=== PATIENT | female | born 1995 | race Caucasian/White ===

== ENCOUNTER 2020-04-03 22:54 | Emergency (ER) | payer OTHER ==
[2020-04-03 23:55] LABS: BASOPHIL 0.2 % (0-2); EOSINOPHIL 0 % (0-5); HCT 39.9 % (37.0-47.0); HGB 12.7 g/dl (12.5-16.0); MCHC 31.8 g/dL (32.0-36.0); MCV 81.8 fL (78.0-100.0); MONOCYTE 7.2 % (0-12); MPV 10.3 fL (6.0-9.5); NEUTROPHIL 65.4 % (41-80); NRBC 0; PLT 397 K/uL (150-400); RBC 4.88 M/uL (4.20-5.40); WBC 9.8 K/uL (4.0-10.5)
[2020-04-04 00:16] LABS: ALBUMIN 3.6 g/dL (3.4-5.0); BILIRUBIN - TOTAL 0.3 mg/dL (0.2-1.0); BUN/CREAT RATIO (CALC) 12.9 RATIO; CREATININE 0.85 mg/dL (0.51-0.95); GLOBULIN (CALCULATION) 4.5 g/dL; POTASSIUM 3.6 mmol/L (3.5-5.1); TOTAL PROTEIN 8.1 g/dL (6.4-8.2)
[2020-04-04 02:29] LABS: BILIRUBIN 1+ mg/dL (NEGATIVE); BLOOD 3+ Ery/uL (NEGATIVE); CLARITY CLEAR (CLEAR); COLOR YELLOW (YELLOW); GLUCOSE (U) NORMAL (NORMAL); LEUKOCYTES NEGATIVE Leu/uL (NEGATIVE); NITRITE NEGATIVE (NEGATIVE); PROTEIN 1+ mg/dL (NEGATIVE); SPECIFIC GRAVITY >=1.030 (1.001-1.030); UROBILINOGEN 0.2 mg/dL (0.2-1.0); pH 5.5 (5.0-9.0)
[2020-04-04 02:35] LABS: BACTERIA 1+; CALCIUM OXALATE CRYSTALS MODERATE; URINARY RBC TNTC
[2020-04-04] MEDS ORDERED: IBUPROFEN800 MG PO (04:35)
[2020-04-04] MEDS ORDERED: FLOMAX0.4 MG PO (04:35)
[2020-04-04] MEDS ORDERED: ONDANSETRON ODT4 MG SL (04:35)
== END 2020-04-04 05:00 | disposition home or self-care (01) ==
LOC: FER 22:54
PROVIDERS: Emergency Medicine Emergency Medical Services
DX: N13.2 Hydronephrosis with renal and ureteral calculous obstruction (principal); F32.9 Major depressive disorder, single episode, unspecified; F41.9 Anxiety disorder, unspecified; Z79.899 Other long term (current) drug therapy; Z87.442 Personal history of urinary calculi; Z87.42 Personal history of other diseases of the female genital tract
CPT/HCPCS: 36415; 80053; 81001; 85025; J0696; J2270; J2405; J7120

== ENCOUNTER 2021-08-16 05:56 | Emergency (ER) | payer OTHER ==
[~2021-08-16 05:56] MED LIST: FLOMAX0.4 MG PO; IBUPROFEN800 MG PO; ONDANSETRON ODT4 MG SL
[2021-08-16 06:50] LABS: BASOPHIL 0.3 % (0-2); EOSINOPHIL 0 % (0-5); HGB 12.3 g/dl (12.5-16.0); LYMPHOCYTE 29.5 % (15-48); MCH 25.8 pg (25.0-31.0); MCHC 31.5 g/dL (32.0-36.0); MCV 81.9 fL (78.0-100.0); MONOCYTE 7.3 % (0-12); NEUTROPHIL 62.6 % (41-80); NRBC 0; PLT 366 K/uL (150-400); RBC 4.76 M/uL (4.20-5.40); RDW 13.6 % (11.5-14.0); WBC 10.6 K/uL (4.0-10.5)
[2021-08-16 07:44] LABS: ALBUMIN 3.1 g/dL (3.4-5.0); BILIRUBIN - TOTAL 0.2 mg/dL (0.2-1.0); CREATININE 0.8 mg/dL (0.51-0.95); GLOBULIN (CALCULATION) 4.2 g/dL; POTASSIUM 4.1 mmol/L (3.5-5.1); TOTAL PROTEIN 7.3 g/dL (6.4-8.2)
[2021-08-16] MEDS ORDERED: ONDANSETRON ODT4 MG PO (08:18)
[2021-08-16] MEDS ORDERED: PEPCID AC20 MG PO (08:18)
[2021-08-16 09:09] LABS: BILIRUBIN NEGATIVE (NEGATIVE); BLOOD 1+ Ery/uL (NEGATIVE); CLARITY CLEAR (CLEAR); COLOR YELLOW (YELLOW); GLUCOSE (U) NORMAL (NORMAL); LEUKOCYTES NEGATIVE Leu/uL (NEGATIVE); NITRITE NEGATIVE (NEGATIVE); PROTEIN NEGATIVE (NEGATIVE); SPECIFIC GRAVITY >=1.030 (1.001-1.030); UROBILINOGEN 0.2 mg/dL (0.2-1.0)
[2021-08-16 09:18] LABS: BACTERIA 4+; CALCIUM OXALATE CRYSTALS TRACE
[2021-08-16 09:20] LABS: TRANSITIONAL EPITHELIAL CELLS RARE
== END 2021-08-16 09:54 | disposition home or self-care (01) ==
LOC: FER 05:56
PROVIDERS: Emergency Medicine
DX: B34.9 Viral infection, unspecified (principal)
CPT/HCPCS: 36415; 80053; 81001; 83690; 84703; 85025; J1885; J2405; J7030